=== PATIENT | male | born 1990 ===

== ENCOUNTER 2020-04-29 15:42 | Emergency (ER) | payer SELFPAY ==
[~2020-04-29] VITALS: Ht 175.3 cm; Wt 63.4 kg
[2020-04-29 15:44] VITALS: BP 124/75
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
== END 2020-04-29 16:18 ==
LOC: ED 15:50
DX: G89.11 Acute pain due to trauma (principal); M79.642 Pain in left hand; Z72.9 Problem related to lifestyle, unspecified; F17.210 Nicotine dependence, cigarettes, uncomplicated; X58.XXXA Exposure to other specified factors, initial encounter; Y93.89 Activity, other specified; Y92.410 Unspecified street and highway as the place of occurrence of the external cause; Y99.8 Other external cause status
CPT/HCPCS: 29130; 99283

== ENCOUNTER 2020-05-24 20:25 | Emergency (ER) | payer SELFPAY ==
[~2020-05-24] VITALS: Ht 175.3 cm; Wt 62.6 kg
[2020-05-24 20:48] VITALS: BP 129/89
[2020-05-24] MEDS ORDERED: IBUPROFEN 600 MG TABLET ONE (23:16)
[2020-05-24] MEDS ORDERED: IBUPROFEN 600 MG TABLET PO ONE (23:30)
== END 2020-05-24 23:19 | disposition home or self-care (01) ==
LOC: ED 21:25
DX: S80.01XA Contusion of right knee, initial encounter (principal); X58.XXXA Exposure to other specified factors, initial encounter; Y93.89 Activity, other specified; Y92.488 Other paved roadways as the place of occurrence of the external cause; Y99.8 Other external cause status
CPT/HCPCS: 99283

== ENCOUNTER 2020-05-28 01:14 | Emergency (ER) | payer SELFPAY ==
[~2020-05-28] VITALS: Ht 175.3 cm; Wt 63.0 kg
[2020-05-28 01:18] VITALS: BP 122/68
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
[2020-05-28] MEDS ORDERED: IBUPROFEN 200 MG TABLET PO ONE (02:00)
== END 2020-05-28 03:54 | disposition home or self-care (01) ==
LOC: ED 01:20
DX: M79.672 Pain in left foot (principal); M79.671 Pain in right foot; F12.10 Cannabis abuse, uncomplicated; Z72.9 Problem related to lifestyle, unspecified; F17.210 Nicotine dependence, cigarettes, uncomplicated; Y08.89XA Assault by other specified means, initial encounter; Y93.89 Activity, other specified; Y92.410 Unspecified street and highway as the place of occurrence of the external cause; Y99.8 Other external cause status
CPT/HCPCS: 99283